=== PATIENT | female | born 1985 | race Caucasian/White ===

== ENCOUNTER 2024-05-09 17:15 | Emergency (ER) | payer MEDICAID ==
[~2024-05-09] VITALS: Ht 157.5 cm; Wt 77.0 kg
[2024-05-09 17:46] VITALS: O2SAT 98
[2024-05-09 18:22] LABS: CLARITY URINE CLOUDY (CLEAR); COLOR URINE DARK YELLOW (YELLOW); GLUCOSE URINE NEGATIVE (NEGATIVE); KETONES URINE 1+ (NEGATIVE); LEUKOCYTE ESTERASE URINE 2+ (NEGATIVE); NITRITE URINE NEGATIVE (NEGATIVE); OCCULT BLOOD URINE NEGATIVE (NEGATIVE); PH URINE 6.5 (4.5-8.0); PROTEIN URINE TRACE (NEGATIVE); SPECIFIC GRAVITY URINE 1.026 (1.005-1.030)
[2024-05-09 18:51] LABS: BACTERIA URINE 3+
[2024-05-09 18:52] LABS: RBC URINE 0-2 /hpf (0-2); SQUAMOUS EPITHELIAL CELL URINE 2+ /lpf (RARE/1+)
[2024-05-09 19:42] LABS: BASOPHILS % 0.5 % (0.0-2.0); EOSINOPHILS % 0.4 % (0.0-5.0); HEMATOCRIT. 37.4 % (36.0-48.0); HEMOGLOBIN. 12.8 g/dL (12.0-16.0); LYMPHOCYTES % 12.6 % (20.0-50.0); MEAN CORPUSCULAR HEMOGLOBIN 31.7 pg (28.0-32.0); MEAN CORPUSCULAR HGB CONC 34.1 g/dL (31.0-37.0); MONOCYTES % 4.1 % (2.0-8.0); NEUTROPHILS % 82.4 % (40.0-76.0); PLATELET 211 x1000/uL (130-400); RED BLOOD CELL COUNT 4.02 mill/uL (4.2-5.4); WHITE BLOOD COUNT 8.2 x1000/uL (4.5-11.0)
[2024-05-09 19:43] LABS: HCG SCREEN NEGATIVE
[2024-05-09 19:48] LABS: CARBON DIOXIDE 25 mEq/L (21-32); CHLORIDE 108 mEq/L (98-107); POTASSIUM 4.2 mEq/L (3.5-5.1); SODIUM 140 mEq/L (136-145)
[2024-05-09 19:49] LABS: CALCIUM 8.9 mg/dL (8.7-10.4)
[2024-05-09 19:53] LABS: CREATININE 0.7 mg/dL (0.6-1.0)
[2024-05-09 19:54] LABS: GLUCOSE 90 mg/dL (70-105); UREA NITROGEN BLOOD 7 mg/dL (9-23)
[2024-05-09 19:55] LABS: ALANINE AMINOTRANSFERASE 25 IU/L (10-49)
[2024-05-09 19:56] LABS: ALBUMIN 4.2 g/dL (3.2-4.8); ASPARTATE AMINOTRANSFERASE 22 IU/L (<34); BILIRUBIN DIRECT 0.3 mg/dL (<=3.0); PROTEIN TOTAL 6.7 g/dL (6.0-8.3)
[2024-05-09] MEDS: ACETAMINOPHEN 325MG TABLET PO ONE (20:15)
[2024-05-09] MEDS: ONDANSETRON HCL 4MG/2ML INJ IV ONE (20:15)
[2024-05-09] MEDS: LACTATED RINGERS 1,000 ML IV SCH (20:15)
[2024-05-09] MEDS: DIATR MEGLU/DIATRIZOATE SOLN 30ML ONE (20:17)
[2024-05-09] MEDS ORDERED: IOHEXOL-300 100 ML BOTTLE ONE (23:18)
[2024-05-09] MEDS ORDERED: ONDA4TAB11 PO (23:55)
[2024-05-09] MEDS ORDERED: KETO10TA2 MT (23:55)
[2024-05-10 00:05] VITALS: BP 122/93; PULSE 90; RESP 18; TEMP 97.4
== END 2024-05-10 00:05 | disposition home or self-care (01) ==
LOC: ER 17:32 → EDBD 17:32 → ER 05-10 00:05
DX: K63.89 Other specified diseases of intestine (principal); N28.1 Cyst of kidney, acquired; N83.202 Unspecified ovarian cyst, left side
CPT/HCPCS: 99285; 74177; 96374; 96361; 80076; 80048; 81003; 84703; 83690; 85025; 36415; J2405; Q9963; Q9967